=== PATIENT | male | born 1975 ===

== ENCOUNTER 2019-07-28 22:22 | Emergency (ER) | payer OTHER ==
[~2019-07-28] VITALS: Ht 180.3 cm; Wt 89.4 kg
[2019-07-28 22:37] VITALS: BP 140/94; Ht 180.3 cm; Wt 89.4 kg
== END 2019-07-29 01:47 | disposition home or self-care (01) ==
LOC: ED 22:22
DX: S50.01XA Contusion of right elbow, initial encounter (principal); S80.212A Abrasion, left knee, initial encounter; W01.0XXA Fall on same level from slipping, tripping and stumbling without subsequent striking against object, initial encounter; Y93.89 Activity, other specified; Y92.89 Other specified places as the place of occurrence of the external cause; Y99.8 Other external cause status
CPT/HCPCS: J1885